=== PATIENT | female | born 1980 | race Hispanic/Latino ===

== ENCOUNTER 2018-04-27 16:52 | Emergency (ER) | payer OTHER ==
[~2018-04-27] VITALS: Ht 167.6 cm; Wt 62.1 kg
[2018-04-27] MEDS ORDERED: LIDODERM 5% P1 PATCH TD (18:52)
[2018-04-27] MEDS ORDERED: NAPROXEN500 MG PO (18:52)
[2018-04-27] MEDS ORDERED: FLEXERIL10 MG PO (18:52)
[2018-04-27] MEDS ORDERED: MEDROL DOSEPAK4 MG PO (18:52)
[2018-04-27 19:18] VITALS: BP 117/62
== END 2018-04-27 19:20 | disposition home or self-care (01) ==
LOC: EME 16:52
DX: M54.42 Lumbago with sciatica, left side (principal)
CPT/HCPCS: 99281; 99284; J1885